=== PATIENT | male | born 2000 | race Caucasian/White ===

== ENCOUNTER 2019-04-23 20:40 | Emergency (ER) | payer SELFPAY ==
--- NOTE | 2019-04-23 22:18 | Emergency Department Report ---
ED Animal Bite HPI - General Chief Complaint: Animal Bite Stated Complaint: DOG BITE RT HAND AND LT JAW Time Seen by Provider: 04/23/19 22:10 Source: patient Mode of arrival: Ambulatory Limitations: No Limitations - History of Present Illness Initial Comments: This is a 19-year-old male presents to the emergency room with a dog bite to right hand and left maxilla. Patient states he was walking in his neighborhood when he noticed 2 dogs that appeared to be friendly. He walked up to them and the male dog latched to his right hand and cut the left side of his face. Patient is not up to date with tetanus vaccine. MD Complaint: animal bite -: This evening Location: face Left: Hand Animal: dog Animal Control Notified: Yes Description: unknown animal Mechanism: bite, scratch Pain Description: dull Severity scale (0 -10): 8 Context: playing with animal Associated Symptoms: bleeding. denies: erythema, discharge from wound, fever, chills, rash, loss of consciousness, cough, headache, diaphoresis, shortness of breath Treatments Prior to Arrival: pressure - Related Data Patient Tetanus UTD: No Previous Rx's Medication Instructions Recorded Last Taken Type Amoxicillin/Potassium Clav 1 each PO BID #14 tablet 04/23/19 Unknown Rx [Augmentin 875-125 Tablet] Allergies Allergy/AdvReac Type Severity Reaction Status Date / Time No Known Allergies Allergy Verified 04/23/19 22:39 ED Review of Systems ROS: Stated complaint: DOG BITE RT HAND AND LT JAW Other details as noted in HPI Constitutional: denies: chills, fever Respiratory: denies: cough, shortness of breath, wheezing Cardiovascular: denies: chest pain, palpitations Gastrointestinal: denies: abdominal pain, nausea, diarrhea Skin: lesions (laceration and puncture wounds to left side of face and right palm). denies: rash Neurological: denies: headache, weakness, paresthesias Psychiatric: denies: anxiety, depression ED Past Medical Hx - Past Medical History Previous Medical History?: No - Surgical History Past Surgical History?: No - Social History Smoking Status: Never Smoker Substance Use Type: None - Medications Home Medications: Home Medications Medication Instructions Recorded Confirmed Last Taken Type Amoxicillin/Potassium Clav 1 each PO BID #14 tablet 04/23/19 Unknown Rx [Augmentin 875-125 Tablet] ED Physical Exam - General Limitations: No Limitations General appearance: alert, in no apparent distress, obese (morbidly obese) - Respiratory Respiratory exam: Present: normal lung sounds bilaterally. Absent: respiratory distress - Cardiovascular Cardiovascular Exam: Present: regular rate, normal rhythm. Absent: systolic murmur, diastolic murmur, rubs, gallop - GI/Abdominal GI/Abdominal exam: Present: soft, normal bowel sounds - Neurological Exam Neurological exam: Present: alert, oriented X3 - Psychiatric Psychiatric exam: Present: normal affect, normal mood - Skin Skin exam: Present: warm, dry, normal color, other (3 mm puncture wound and laceration to right palm between 2nd and 3rd metacarpal, laceration to left maxillary into epidermis, serosangionous discharge). Absent: intact, rash ED Course Vital Signs 04/23/19 04/24/19 20:44 00:07 Temperature 98.6 F 98.7 F Pulse Rate 115 H 81 Respiratory 18 20 Rate Blood Pressure 127/99 Blood Pressure 119/75 [Left] O2 Sat by Pulse 99 96 Oximetry Critical care attestation.: If time is entered above; I have spent that time in minutes in the direct care of this critically ill patient, excluding procedure time. ED Disposition Clinical Impression: Puncture wound of hand Qualifiers: Encounter type: initial encounter Foreign body presence: without foreign body Laterality: right Qualified Code(s): S61.431A - Puncture wound without foreign body of right hand, initial encounter Laceration of hand Qualifiers: Encounter type: initial encounter Foreign body presence: without foreign body Laterality: right Qualified Code(s): S61.411A - Laceration without foreign body of right hand, initial encounter Laceration of face Qualifiers: Encounter type: initial encounter Qualified Code(s): S01.81XA - Laceration without foreign body of other part of head, initial encounter Disposition: DC-01 TO HOME OR SELFCARE Is pt being admited?: No Does the pt Need Aspirin: No Condition: Stable Instructions: Animal Bite (ED), Suture Care (ED), Laceration (ED) Additional Instructions: Follow-up with health department for her remaining rabies shots as discussed and according to handout. Take antibiotics as prescribed for the full course. Keep wound dry and clean for 48 hours. Avoid putting to much tension on wound site. Prop arm up on pillows to decrease swelling. Follow up with Primary Care Provider in 2-3 days. Have sutures removed in 7 days by primary care provider or in ER. Return to ER if red, swollen, foul discharge, or fever. Prescriptions: Amoxicillin/Potassium Clav [Augmentin 875-125 Tablet] 1 each PO BID #14 tablet Referrals: DES COFFEY MD [Primary Care Provider] - 3-[address] [facility] [Outside] - 3-5 Days [facility] [Outside] - 3-5 Days Forms: Accompanied Note, Work/School Release Form(ED) Time of Disposition: 23:32 ED Medical Decision Making - Radiology Data Radiology results: report reviewed PROCEDURE: XR HAND 2V RT TECHNIQUE: RIGHT hand radiographs, PA and lateral views. HISTORY: dog bite to palm 2nd and 3rd metacarpal COMPARISONS: None . FINDINGS: Fracture (s) and/or Dislocation(s): None . Alignment: Normal . Joint space(s): Normal . Soft tissues: Normal . Bone mineralization: Normal . Foreign bodies: None . IMPRESSION: Normal Examination . - Medical Decision Making Patient was examined by me. Vitals are normal and patient is in no acute distress. Obtained a x-ray of right hand. X-rays dictated by radiologist and no acute findings. Patient is unknown dog. Agrees to take rabies immunoglobulin. Given rabies immunoglobulin. Laceration to left maxillary and right hand loosely closed with one suture, review note. Patient informed of results. Patient given handout for follow-up health department. Start Augmentin. Plan discussed with patient to discharge home stable. He agrees with ER plan. Patient discharged home in stable condition. Follow up with PCP in 2-3 days.
[2019-04-23] MEDS ORDERED: XYLOCAINE 2% INFILTRATI ONE (22:23)
[2019-04-23] MEDS ORDERED: BOOSTRIX IM ONE (22:25)
--- NOTE | 2019-04-23 23:10 | XRay Report ---
PROCEDURE: XR HAND 2V RT TECHNIQUE: RIGHT hand radiographs, PA and lateral views. HISTORY: dog bite to palm 2nd and 3rd metacarpal COMPARISONS: None . FINDINGS: Fracture (s) and/or Dislocation(s): None . Alignment: Normal . Joint space(s): Normal . Soft tissues: Normal . Bone mineralization: Normal . Foreign bodies: None . IMPRESSION: Normal Examination . This document is electronically signed by Sarah Tinsley DO., Apr 23 2019 11:08:31 PM ET
[2019-04-23] MEDS ORDERED: RABAVERT RABIES VACCINE(PCEC) IM ONE (23:44)
[2019-04-24 00:09] VITALS: BP 119/75
== END 2019-04-24 01:31 | disposition home or self-care (01) ==
LOC: ED 20:40
DX: S61.431A Puncture wound without foreign body of right hand, initial encounter (principal); S61.411A Laceration without foreign body of right hand, initial encounter; S01.81XA Laceration without foreign body of other part of head, initial encounter; W54.0XXA Bitten by dog, initial encounter; Y93.89 Activity, other specified; Y92.89 Other specified places as the place of occurrence of the external cause; Y99.8 Other external cause status
CPT/HCPCS: 90375; 90471; 90472; 90675; 90715; 96372; 99283